=== PATIENT | female | born 1960 | race Caucasian/White ===

== ENCOUNTER 2017-10-13 14:22 | Emergency (ER) | payer BC ==
[2017-10-13 15:11] VITALS: BP 108/55
[2017-10-13 15:37] LABS: BASOPHILS % (AUTO) 0.4 % (0-1); EOSINOPHILS # (AUTO) 0.2 X10'3 (0-0.9); EOSINOPHILS % (AUTO) 3.3 % (0-6); HEMOGLOBIN 12.8 g/dl (12.0-16.0); LYMPHOCYTES # (AUTO) 0.7 X10'3 (1.1-4.8); LYMPHOCYTES % (AUTO) 14.7 % (21-51); MEAN CORPUSCULAR HEMOGLOBIN 30.8 PG (27.0-31.0); MEAN CORPUSCULAR HGB CONC 34.6 % (33.0-36.5); MEAN PLATELET VOLUME 8.1 FL (7.4-10.4); MONOCYTES # (AUTO) 0.4 X10'3 (0-0.9); MONOCYTES % (AUTO) 8.5 % (2-12); NEUTROPHILS # (AUTO) 3.5 X10'3 (1.8-7.7); NEUTROPHILS % (AUTO) 73.1 % (42-75); PLATELET COUNT 257 X10'3 (140-440); RED BLOOD COUNT 4.15 X10'6 (4.20-5.60); RED CELL DISTRIBUTION WIDTH 13.6 % (11.5-14.5); WHITE BLOOD COUNT 4.8 X10'3 (4.5-11.0)
[2017-10-13] MEDS ORDERED: sucralfate 1gm/10ml UD suspension PO STA (15:41)
[2017-10-13] MEDS ORDERED: LIDOcaine Viscous 15ml cup MM ONE (15:45)
[2017-10-13] MEDS ORDERED: SUCR1ORA2 PO (15:45)
[2017-10-13 15:56] LABS: ALANINE AMINOTRANSFERASE 44 U/L (12-78); ALBUMIN 4.2 G/DL (3.4-5.0); ALKALINE PHOSPHATASE 46 IU/L (46-116); AMYLASE 48 U/L (25-115); ANION GAP 6 (8-16); ASPARTATE AMINO TRANSFERASE 23 U/L (10-37); BILIRUBIN,TOTAL 0.3 MG/DL (0.1-1.0); BLOOD UREA NITROGEN 22 MG/DL (7-18); BUN/CREATININE RATIO 23.7 (6.6-38.0); CALCIUM 9.8 MG/DL (8.5-10.1); CHLORIDE 105 MMOL/L (99-107); CREATININE 0.93 MG/DL (0.40-0.90); GLUCOSE 107 MG/DL (70-104); LIPASE 98 U/L (73-393); SODIUM 144 MMOL/L (135-145); TOTAL CARBON DIOXIDE 32.6 MMOL/L (24-32); TOTAL PROTEIN 8.4 G/DL (6.4-8.2); eGFR 62 ML/MIN
[2017-10-13 16:15] LABS: CLARITY,URINE CLEAR (Clear); COLOR,URINE YELLOW (Yellow); GLUCOSE, URINE NEGATIVE (Neg); KETONES,URINE TRACE mg/dl (Neg); LEUKOCYTE ESTERASE ,URINE NEGATIVE (Neg); NITRITES, URINE NEGATIVE (Neg); OCCULT BLOOD,URINE TRACE-LYSED (Neg); PH,URINE 5.5 (4.8-8.0); PROTEIN,URINE NEGATIVE (Neg); UROBILINOGEN,URINE 0.2 E.U/dL (0.2-1.0)
[2017-10-13 16:20] LABS: UA COLLECTION TYPE CLN CATCH MIDSTREAM
[2017-10-13 16:21] LABS: BACTERIA,URINE NONE SEEN /HPF (Neg); MUCUS STRANDS FEW /LPF (Neg); RBC,URINE 0-2 /HPF (0-2); SQUAMOUS EPITHELIAL CELL,UR FEW /LPF (FEW); WBC,URINE NONE SEEN /HPF (0-4)
== END 2017-10-13 16:15 | disposition home or self-care (01) ==
LOC: ER 14:23
DX: R10.13 Epigastric pain (principal); R11.2 Nausea with vomiting, unspecified; G89.29 Other chronic pain; Z88.8 Allergy status to other drugs, medicaments and biological substances
CPT/HCPCS: 36415; 80053; 81001; 82150; 83690; 85025; 85610; 99284

== ENCOUNTER 2018-08-10 10:31 | Emergency (ER) | payer BC ==
[~2018-08-10] VITALS: Ht 165.1 cm; Wt 63.6 kg
[~2018-08-10 10:31] MED LIST: SUCR1ORA2 PO
[2018-08-10 11:23] LABS: CLARITY,URINE SLIGHTLY CLOUDY (Clear); COLOR,URINE YELLOW (Yellow); GLUCOSE, URINE NEGATIVE (Neg); KETONES,URINE NEGATIVE (Neg); LEUKOCYTE ESTERASE ,URINE MODERATE (Neg); NITRITES, URINE NEGATIVE (Neg); OCCULT BLOOD,URINE LARGE (Neg); PROTEIN,URINE NEGATIVE (Neg); UROBILINOGEN,URINE 0.2 E.U/dL (0.2-1.0)
[2018-08-10 11:38] LABS: UA COLLECTION TYPE CLN CATCH MIDSTREAM
[2018-08-10 11:48] LABS: MUCUS STRANDS FEW /LPF (Neg); SQUAMOUS EPITHELIAL CELL,UR FEW /LPF (FEW)
[2018-08-10 11:49] LABS: WBC,URINE TNTC /HPF (0-4)
[2018-08-10 11:51] LABS: BACTERIA,URINE 1+ /HPF (Neg); WBC CLUMPS,URINE FEW /HPF (NEGATIVE)
[2018-08-10] MEDS ORDERED: ondansetron/PF 4mg/2ml inj IV ONE (12:05)
[2018-08-10] MEDS ORDERED: CefTRIAXone 2gm/D5W 50ml 50 ML IV ONE (12:05)
[2018-08-10] MEDS ORDERED: ketorolac trometh. 30mg/ml inj. IV ONE (12:05)
[2018-08-10] MEDS ORDERED: normal saline 1000ML IV soln IVB ONE (12:05)
[2018-08-10 12:23] LABS: BASOPHILS % (AUTO) 0.3 % (0-1); EOSINOPHILS # (AUTO) 0.1 X10'3 (0-0.9); EOSINOPHILS % (AUTO) 2.2 % (0-6); HEMATOCRIT 36.4 % (35.0-45.0); HEMOGLOBIN 12.4 g/dl (12.0-16.0); LYMPHOCYTES # (AUTO) 0.9 X10'3 (1.1-4.8); LYMPHOCYTES % (AUTO) 16.1 % (21-51); MEAN CORPUSCULAR HEMOGLOBIN 30.3 PG (27.0-31.0); MEAN CORPUSCULAR HGB CONC 34.2 g/dL (33.0-36.5); MEAN CORPUSCULAR VOLUME 88.6 FL (78-98); MEAN PLATELET VOLUME 7.4 FL (7.4-10.4); MONOCYTES # (AUTO) 0.4 X10'3 (0-0.9); MONOCYTES % (AUTO) 8.1 % (2-12); NEUTROPHILS % (AUTO) 73.3 % (42-75); PLATELET COUNT 265 X10'3 (140-440); RED BLOOD COUNT 4.11 X10'6 (4.20-5.60); RED CELL DISTRIBUTION WIDTH 14.2 % (11.5-14.5); WHITE BLOOD COUNT 5.5 X10'3 (4.5-11.0)
[2018-08-10 12:35] LABS: LIPASE 78 U/L (73-393)
[2018-08-10 13:11] LABS: ALANINE AMINOTRANSFERASE 32 U/L (12-78); ALKALINE PHOSPHATASE 56 IU/L (46-116); ANION GAP 8 (8-16); ASPARTATE AMINO TRANSFERASE 19 U/L (10-37); BILIRUBIN,TOTAL 0.4 MG/DL (0.1-1.0); BLOOD UREA NITROGEN 15 MG/DL (7-18); BUN/CREATININE RATIO 20.8 (6.6-38.0); CALCIUM 9.6 MG/DL (8.5-10.1); CHLORIDE 103 MMOL/L (99-107); CREATININE 0.72 MG/DL (0.40-0.90); GLUCOSE 85 MG/DL (70-104); POTASSIUM 4.1 MMOL/L (3.5-5.1); SODIUM 140 MMOL/L (135-145); TOTAL PROTEIN 7.9 G/DL (6.4-8.2); eGFR 83 ML/MIN
--- NOTE | 2018-08-10 13:23 | NUR ---
PT BACK FROM CT
[2018-08-10 13:24] VITALS: BP 121/81
[2018-08-10] MEDS ORDERED: CEPH-572 PO (13:56)
[2018-08-10] MEDS ORDERED: PHEN-716 PO (13:58)
== END 2018-08-10 14:22 | disposition home or self-care (01) ==
LOC: ER 10:32
DX: N39.0 Urinary tract infection, site not specified (principal); I88.0 Nonspecific mesenteric lymphadenitis; G89.29 Other chronic pain; Z88.8 Allergy status to other drugs, medicaments and biological substances; Z79.2 Long term (current) use of antibiotics; Z79.899 Other long term (current) drug therapy
CPT/HCPCS: 36415; 74176; 80053; 81001; 83690; 85025; 87088; 96365; 96375; 99284; J0696; J1885; J2405; J7030

== ENCOUNTER 2018-08-13 16:01 | Emergency (ER) | payer BC ==
[~2018-08-13] VITALS: Ht 165.1 cm; Wt 60.5 kg
[~2018-08-13 16:01] MED LIST changes: +CEPH-572 PO; +PHEN-716 PO
[2018-08-13] MEDS ORDERED: LIDOcaine 5% patch TP ONE (18:25)
[2018-08-13] MEDS ORDERED: ondansetron 4mg rapidly disintigrating tab PO ONE (18:25)
[2018-08-13] MEDS ORDERED: HYDROcodone/acetaminophen 5mg/325mg tablet PO ONE (18:25)
[2018-08-13] MEDS ORDERED: orphenadrine citrate 60mg/2ml inj. IM ONE (18:25)
[2018-08-13] MEDS ORDERED: aspirin 325mg tablet PO ONE (18:25)
[2018-08-13] MEDS ORDERED: ketorolac trometh inj. 60 MG/2 ML VIAL IM ONE (18:25)
[2018-08-13 19:08] LABS: BASOPHILS % (AUTO) 0.4 % (0-1); EOSINOPHILS # (AUTO) 0.2 X10'3 (0-0.9); EOSINOPHILS % (AUTO) 2.3 % (0-6); HEMATOCRIT 37.8 % (35.0-45.0); HEMOGLOBIN 12.8 g/dl (12.0-16.0); LYMPHOCYTES % (AUTO) 14.5 % (21-51); MEAN CORPUSCULAR HEMOGLOBIN 30.2 PG (27.0-31.0); MEAN CORPUSCULAR HGB CONC 33.9 g/dL (33.0-36.5); MEAN PLATELET VOLUME 8.1 FL (7.4-10.4); MONOCYTES # (AUTO) 0.3 X10'3 (0-0.9); NEUTROPHILS # (AUTO) 5.2 X10'3 (1.8-7.7); NEUTROPHILS % (AUTO) 77.8 % (42-75); PLATELET COUNT 303 X10'3 (140-440); RED BLOOD COUNT 4.25 X10'6 (4.20-5.60); RED CELL DISTRIBUTION WIDTH 14.2 % (11.5-14.5); WHITE BLOOD COUNT 6.7 X10'3 (4.5-11.0)
[2018-08-13 19:09] LABS: ALANINE AMINOTRANSFERASE 26 U/L (12-78); ALBUMIN 4.2 G/DL (3.4-5.0); ALKALINE PHOSPHATASE 56 IU/L (46-116); ANION GAP 11 (8-16); ASPARTATE AMINO TRANSFERASE 16 U/L (10-37); BILIRUBIN,TOTAL 0.4 MG/DL (0.1-1.0); BLOOD UREA NITROGEN 16 MG/DL (7-18); BUN/CREATININE RATIO 18.4 (6.6-38.0); CALCIUM 9.6 MG/DL (8.5-10.1); CHLORIDE 101 MMOL/L (99-107); CREATININE 0.87 MG/DL (0.40-0.90); GLUCOSE 87 MG/DL (70-104); POTASSIUM 3.8 MMOL/L (3.5-5.1); SODIUM 140 MMOL/L (135-145); TOTAL PROTEIN 8.3 G/DL (6.4-8.2); eGFR 67 ML/MIN
[2018-08-13 19:25] LABS: CLARITY,URINE CLEAR (Clear); COLOR,URINE YELLOW (Yellow); GLUCOSE, URINE NEGATIVE (Neg); KETONES,URINE 40 mg/dl (Neg); LEUKOCYTE ESTERASE ,URINE NEGATIVE (Neg); NITRITES, URINE POSITIVE (Neg); OCCULT BLOOD,URINE NEGATIVE (Neg); PROTEIN,URINE NEGATIVE (Neg); UROBILINOGEN,URINE 0.2 E.U/dL (0.2-1.0)
[2018-08-13 19:37] LABS: UA COLLECTION TYPE STRAIGHT CATH
[2018-08-13 19:39] LABS: BACTERIA,URINE 1+ /HPF (Neg); RBC,URINE 0-2 /HPF (0-2); SQUAMOUS EPITHELIAL CELL,UR FEW /LPF (FEW); WBC,URINE 0-4 /HPF (0-4)
[2018-08-13] MEDS ORDERED: CIP750T PO (19:50)
[2018-08-13] MEDS ORDERED: ACET-2615 PO (19:50)
[2018-08-13] MEDS ORDERED: LIDO700A32 TP (19:50)
[2018-08-13] MEDS ORDERED: MELO-100 PO (19:50)
[2018-08-13] MEDS ORDERED: CYCL-1 PO (19:50)
[2018-08-13 20:10] VITALS: BP 129/75
== END 2018-08-13 20:12 | disposition home or self-care (01) ==
LOC: ER 16:01
DX: N39.0 Urinary tract infection, site not specified (principal); M54.5 Low back pain; R45.0 Nervousness; G89.29 Other chronic pain; E07.9 Disorder of thyroid, unspecified; Z88.8 Allergy status to other drugs, medicaments and biological substances
CPT/HCPCS: 36415; 80053; 81001; 85025; 87088; 96372; 99284; J1885; J2360

== ENCOUNTER 2020-03-21 09:04 | Day surgery (SDC) | payer BC ==
[2020-03-18 15:56] LABS: BASOPHILS % (AUTO) 0.5 % (0-1); EOSINOPHILS # (AUTO) 0.2 X10'3 (0-0.9); EOSINOPHILS % (AUTO) 3.5 % (0-6); LYMPHOCYTES # (AUTO) 0.7 X10'3 (1.1-4.8); LYMPHOCYTES % (AUTO) 15.8 % (21-51); MEAN CORPUSCULAR HEMOGLOBIN 30.3 PG (27.0-31.0); MEAN PLATELET VOLUME 7.9 FL (7.4-10.4); MONOCYTES # (AUTO) 0.4 X10'3 (0-0.9); MONOCYTES % (AUTO) 9.4 % (2-12); NEUTROPHILS # (AUTO) 3.2 X10'3 (1.8-7.7); NEUTROPHILS % (AUTO) 70.8 % (42-75); PRE OP HEMATOCRIT 35.5 % (35.0-45.0); PRE OP HEMOGLOBIN 12.1 g/dL (12.0-16.0); PRE OP PLATELET COUNT 208 X10'3 (140-440); RED BLOOD COUNT 3.99 X10'6 (4.20-5.60); RED CELL DISTRIBUTION WIDTH 13.4 % (11.5-14.5)
[2020-03-18 16:00] LABS: PRE OP INR 0.9 INR; PRE OP PROTIME 9.7 SECONDS (9.0-12.0)
[2020-03-18 16:04] LABS: ALBUMIN 3.8 G/DL (3.4-5.0); ALKALINE PHOSPHATASE 58 IU/L (46-116); BLOOD UREA NITROGEN 18 MG/DL (7-18); BUN/CREATININE RATIO 22.8 (6.6-38.0); CALCIUM 9.4 MG/DL (8.5-10.1); CHLORIDE 105 MMOL/L (99-107); CREATININE 0.79 MG/DL (0.40-0.90); PRE OP ALT 43 U/L (30-65); PRE OP ANION GAP 2 (8-16); PRE OP AST 19 U/L (10-37); PRE OP BILIRUB, TOTAL 0.4 MG/DL (0.0-1.0); PRE OP GLUCOSE 102 MG/DL (70-104); PRE OP POTASSIUM 4.1 MMOL/L (3.4-5.1); PRE OP SODIUM 138 MMOL/L (135-145); TOTAL CARBON DIOXIDE 30.8 MMOL/L (24-32); TOTAL PROTEIN 7.6 G/DL (6.4-8.2); eGFR 75 ML/MIN
[2020-03-21] VITALS (20 sets, daily range): BP systolic 107–146; BP diastolic 52–96
[~2020-03-21] VITALS: Ht 165.1 cm; Wt 65.9 kg
[~2020-03-21 09:04] MED LIST changes: +ASPI81TA52 PO; -CEPH-572 PO; +ESCI20TA45 PO; +LEVO200T8 PO; -PHEN-716 PO; -SUCR1ORA2 PO; +[UNRECOGNIZED DRUG - OTHER] PO; +cefazolin/dext.iso 2gm/50ml 50 ML IV ONE; +famotidine 20mg tablet PO ONE; +ringers solution, lacted 1,000 ML IV SCH; +vancomycin 1,500 MG in NS 300ml IV soln IV ONE
[2020-03-21] MEDS ORDERED: sevoflurane 250ml liquid IH ONE (11:40)
[2020-03-21] MEDS ORDERED: midazolam 2 mg/2 ml injection ONE (11:49)
[2020-03-21] MEDS ORDERED: fentaNYL /PF 50mcg/ml 5ml ampule ONE (11:50)
[2020-03-21] MEDS ORDERED: ringers solution, lacted 1,000 ML IV SCH (13:11)
[2020-03-21] MEDS ORDERED: meperidine/PF 25mg/ml syringe IV PRN ×2 (13:15)
[2020-03-21] MEDS ORDERED: ondansetron/PF 4mg/2ml inj IV PRN (13:15)
[2020-03-21] MEDS ORDERED: morphine 4 MG/ML inj SYRINge IV PRN (13:15)
[2020-03-21] MEDS ORDERED: morphine 2 MG/ML inj. syringe IV PRN (13:15)
[2020-03-21] MEDS ORDERED: hydrALAZINE 20mg/ml inj. IV ONE (13:33)
[2020-03-21] MEDS ORDERED: BUPIVAcaine/PF 2.5 mg/ml (0.25%) 30ml vial ONE ×2 (13:33→13:59)
[2020-03-21] MEDS ORDERED: ondansetron/PF 4mg/2ml inj ONE (13:37)
[2020-03-21] MEDS ORDERED: glycopyrrolate 0.2mg/ml inj ONE (13:37)
[2020-03-21] MEDS ORDERED: rocuronium 10mg/ml inj IV ONE (13:37)
[2020-03-21] MEDS ORDERED: dexamethasone sod phosphate 4mg/ml inj. ONE (13:37)
[2020-03-21] MEDS ORDERED: neostigmine methylsulfate 1 MG/ML 10ml vial ONE (13:37)
[2020-03-21] MEDS ORDERED: propofol inj 20 ML IV ONE (13:37)
[2020-03-21] MEDS ORDERED: LIDOcaine 2% (20mg/ml) 5ml vial ONE (13:37)
[2020-03-21] MEDS ORDERED: acetaminophen 1,000mg/100ml IV 100 ML IV ONE (14:12)
--- NOTE | 2020-03-21 14:23 | NUR ---
RECEIVED FROM OR VIA BED WITH OHTF ACCOMPANIED BY ANESTHESIOLOGIST DR BARCENAS, REPORT GIVEN. PT DROWSY BUT AROUSES EASILY AND DENIES PAIN AT THIS TIME. 20 GAUGE PIV R HAND PATENT AND RUNNING LR AT 100 ML/HR. RLE DRESSING CDI, PPULSES PALPABLE, UNABLE TO PALPATE R PEDAL COVERED WITH SPLINT AND DRESSING. BRISK CAP REFILL, SKIN PINK AND WARM, VSS, PROCTOR, SCDS ON, RESTING COMFORTABLY.
[2020-03-21] MEDS ORDERED: HYDROmorphone inj. 0.5 MG/0.5 ML DISP.SYRIN IV PRN (14:40)
[2020-03-21] MEDS ORDERED: magnesium hydroxide 30ml (MOM) UD suspension PO PRN (14:40)
[2020-03-21] MEDS ORDERED: bisacodyl 10mg suppository rectal RC PRN (14:40)
[2020-03-21] MEDS ORDERED: diphenhydrAMINE 25mg capsule PO PRN ×2 (14:40)
[2020-03-21] MEDS ORDERED: acetaminophen 325mg tablet PO PRN (14:40)
[2020-03-21] MEDS: meperidine/PF 25mg/ml syringe IV PRN ×3 (15:00→15:35)
--- NOTE | 2020-03-21 15:43 | NUR ---
TRANSFERRED VIA BED WITH OHTF ACCOMPANIED BY MALENA ALEJANDRO, REPORT GIVEN. PT AWAKE AND ALERT AND STATES PAIN LEVEL OF 10 AT THIS TIME, HOWEVER PT IS RESTING COMFORTABLY WITH NO VISIBLE SYMPTOMS OF PAIN. 20 GAUGE PIV R HAND PATENT AND RUNNING LR AT 100 ML/HR. RLE DRESSING CDI, PPULSES PALPABLE, UNABLE TO PALPATE R PEDAL COVERED WITH SPLINT AND DRESSING. BRISK CAP REFILL, SKIN PINK AND WARM, VSS, PROCTOR, SCDS ON, RESTING COMFORTABLY. LEFT IN CARE OF ERICK ALEJANDRO.
--- NOTE | 2020-03-21 18:10 | NUR ---
Patient in room [facility] 4013. I have received report from JAVON Hogue and had the opportunity to ask questions and assume patient care.
--- NOTE | 2020-03-21 18:45 | NUR ---
Problems reprioritized. Patient report given, questions answered & plan of care reviewed with Rimma ALEJANDRO.
[2020-03-21] MEDS: ceFAZolin 1GM/D5W- ADD-VANTAGE 50 ML IV SCH (18:51)
[2020-03-21] MEDS: HYDROcodone/acetaminophen 10/325mg tab PO PRN ×2 (18:52→23:50)
[2020-03-21] MEDS ORDERED: vancomycin/NS 1 GM ADD-VANTAGE 250 ML IV SCH (20:00)
[2020-03-21] MEDS: potassium Cl 20mEq in NS 1,000 ML IV SCH (20:25)
[2020-03-21] MEDS ORDERED: sennosides 8.6mg tablet PO SCH (21:00)
[2020-03-22] MEDS: ceFAZolin 1GM/D5W- ADD-VANTAGE 50 ML IV SCH (00:39)
[2020-03-22 02:00] VITALS: BP 103/54
[2020-03-22] MEDS: HYDROcodone/acetaminophen 10/325mg tab PO PRN ×3 (03:55→13:33)
[2020-03-22] MEDS: potassium Cl 20mEq in NS 1,000 ML IV SCH (03:56)
[2020-03-22 06:00] VITALS: BP 108/67
--- NOTE | 2020-03-22 06:28 | NUR ---
Problems reprioritized. Patient report given, questions answered & plan of care reviewed with JAVON Hogue.
[2020-03-22] MEDS ORDERED: levoTHYROXINE 100mcg tablet PO SCH (07:00)
[2020-03-22] MEDS ORDERED: ESCITALOPRAM OXALATE 5 MG TABLET PO SCH (08:00)
[2020-03-22] MEDS ORDERED: aspirin 81mg tablet.DR PO SCH (08:00)
[2020-03-22] MEDS ORDERED: HYDR-4353 PO (09:43)
[2020-03-22] MEDS ORDERED: WALKERFR (09:46)
[2020-03-22 10:00] VITALS: BP 95/61
--- NOTE | 2020-03-22 16:52 | NUR ---
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 Patient called and stated she misplaced her ring. I checked all linen and room no ring and the admission belongings "no jewelry on 03/21" was documented.
== END 2020-03-22 16:00 | disposition home or self-care (01) ==
LOC: PAS 09:04 → ORTHO 4S 14:36 → PAS 03-22 16:00
PROVIDERS: ATTEND Orthopaedic Surgery
DX: S82.121A Displaced fracture of lateral condyle of right tibia, initial encounter for closed fracture (principal); E03.9 Hypothyroidism, unspecified; F41.0 Panic disorder [episodic paroxysmal anxiety]; F41.9 Anxiety disorder, unspecified; F32.9 Major depressive disorder, single episode, unspecified; G35 Multiple sclerosis; Z79.899 Other long term (current) drug therapy; Z98.890 Other specified postprocedural states; F12.90 Cannabis use, unspecified, uncomplicated; F17.210 Nicotine dependence, cigarettes, uncomplicated; Z87.19 Personal history of other diseases of the digestive system; Z88.8 Allergy status to other drugs, medicaments and biological substances; W01.198A Fall on same level from slipping, tripping and stumbling with subsequent striking against other object, initial encounter; Y92.014 Private driveway to single-family (private) house as the place of occurrence of the external cause; Y93.89 Activity, other specified; Y99.8 Other external cause status
CPT/HCPCS: 27535; 36415; 73590; 76000; 80053; 82948; 85025; 85610; 85730; 93005; A6223; C1713; J0131; J0360; J0690; J1100; J1170; J2001; J2175; J2250; J2405; J2704; J2710; J3010; J3370; J3480; J3490; J7040; Q0163; A4618; A6449; A7000; G0378; J7120